=== PATIENT | female | born 1955 | race Caucasian/White ===

== ENCOUNTER → 2016-09-04 | Outpatient (CLI) | payer BC, OTHER ==
[~2016-09-04] MED LIST: BONI150T PO; LEVO88TA3 PO
--- NOTE | 2016-09-04 15:48 | REPMRS ---
Patient History The patient states she had a clinical breast exam in 2016. No known family history of cancer. Took hormonal contraceptives for 4 years. Took unspecified hormones for 4 years. Digital Mammo Screening Bilat: September 04, 2016 - Exam #: [id number] Bilateral CC and MLO view(s) were taken. Technologist: Jen Klein, Technologist Prior study comparison: August 30, 2015, bilateral digital mammo screening bilat performed at [facility]. August 29, 2014, bilateral bilat screen digital mammo, performed at [facility] ([facility]). FINDINGS: The breast tissue is heterogeneously dense. This may lower the sensitivity of mammography. There is a fairly symmetric fibroglandular pattern in both breasts. There has been no interval development of masses, areas of architectural distortion or clusters of microcalcifications typical of malignancy. No significant changes when compared with prior studies. ASSESSMENT: BI-RADS/ACR category 2 mammogram. Benign finding(s). Recommendation Routine screening mammogram of both breasts in 1 year (for women over age 40). This mammogram was interpreted with the aid of an FDA-approved computer-aided dectection system. Electronically Signed By: Sonny Escalera MD 09/04/16 8009
== END ==
LOC: M RAD 14:44
PROVIDERS: ATTEND Obstetrics & Gynecology
DX: Z12.31 Encounter for screening mammogram for malignant neoplasm of breast (principal)

== ENCOUNTER → 2016-09-30 | Outpatient (REF) | payer OTHER ==
[2016-09-30 11:31] LABS: ALBUMIN 3.6 GM/DL (3.2-5.2); ALBUMIN/GLOBULIN RATIO 0.88 (1.00-1.93); ALKALINE PHOSPHATASE 76 U/L (45-117); ALT/SGPT 28 U/L (12-78); ANION GAP 8 MEQ/L (8-16); AST/SGOT 24 U/L (15-37); BILIRUBIN,TOTAL 0.7 MG/DL (0.2-1.0); BLOOD UREA NITROGEN 20 MG/DL (7-18); CALCIUM LEVEL 8.1 MG/DL (8.8-10.2); CARBON DIOXIDE LEVEL 30 MEQ/L (21-32); CHLORIDE LEVEL 106 MEQ/L (98-107); CHOLESTEROL LEVEL 222 MG/DL (<200); CREATININE FOR GFR 0.83 MG/DL (0.55-1.02); FREE T4 1.46 NG/DL (0.76-1.46); GLOMERULAR FILTRATION RATE > 60.0 (>45); GLUCOSE, FASTING 82 MG/DL (80-110); SODIUM LEVEL 144 MEQ/L (136-145); TOTAL PROTEIN 7.7 GM/DL (6.4-8.2); TRIGLYCERIDES LEVEL 91 MG/DL (<150)
== END ==
LOC: M SFHCCLAY 07:16
PROVIDERS: ATTEND Family Medicine
DX: E78.2 Mixed hyperlipidemia (principal); E03.9 Hypothyroidism, unspecified; M81.0 Age-related osteoporosis without current pathological fracture

== ENCOUNTER → 2017-03-31 | Outpatient (REF) | payer OTHER ==
[2017-03-31 12:55] LABS: ALBUMIN 3.5 GM/DL (3.2-5.2); ALBUMIN/GLOBULIN RATIO 0.88 (1.00-1.93); ALKALINE PHOSPHATASE 66 U/L (45-117); ALT/SGPT 22 U/L (12-78); ANION GAP 6 MEQ/L (8-16); AST/SGOT 19 U/L (15-37); BILIRUBIN,TOTAL 0.7 MG/DL (0.2-1.0); BLOOD UREA NITROGEN 18 MG/DL (7-18); CALCIUM LEVEL 8.6 MG/DL (8.8-10.2); CARBON DIOXIDE LEVEL 31 MEQ/L (21-32); CHLORIDE LEVEL 108 MEQ/L (98-107); CHOLESTEROL LEVEL 198 MG/DL (<200); CREATININE FOR GFR 0.92 MG/DL (0.55-1.02); FREE T4 1.39 NG/DL (0.76-1.46); GLOMERULAR FILTRATION RATE > 60.0 (>45); GLUCOSE, FASTING 80 MG/DL (80-110); POTASSIUM SERUM 4.1 MEQ/L (3.5-5.1); SODIUM LEVEL 145 MEQ/L (136-145); TOTAL PROTEIN 7.5 GM/DL (6.4-8.2); TRIGLYCERIDES LEVEL 62 MG/DL (<150)
== END ==
LOC: M SFHCCLAY 07:08
PROVIDERS: ATTEND Family Medicine
DX: E78.2 Mixed hyperlipidemia (principal); E03.9 Hypothyroidism, unspecified; M81.0 Age-related osteoporosis without current pathological fracture

== ENCOUNTER → 2017-09-29 | Outpatient (REF) | payer OTHER ==
[2017-09-29 11:53] LABS: TOTAL 25(OH) VITAMIN D 33.6 NG/ML (30.0-100.0)
[2017-09-29 12:06] LABS: ALBUMIN 4.3 GM/DL (3.2-5.2); ALBUMIN/GLOBULIN RATIO 1.08 (1.00-1.93); ALKALINE PHOSPHATASE 72 U/L (45-117); ALT/SGPT 21 U/L (12-78); ANION GAP 5 MEQ/L (8-16); AST/SGOT 23 U/L (7-37); BILIRUBIN,TOTAL 0.6 MG/DL (0.2-1.0); BLOOD UREA NITROGEN 21 MG/DL (7-18); CALCIUM LEVEL 8.7 MG/DL (8.8-10.2); CARBON DIOXIDE LEVEL 33 MEQ/L (21-32); CHLORIDE LEVEL 103 MEQ/L (98-107); CHOLESTEROL LEVEL 237 MG/DL (<200); CREATININE FOR GFR 0.85 MG/DL (0.55-1.30); FREE T4 1.57 NG/DL (0.76-1.46); GLOMERULAR FILTRATION RATE > 60.0 (>45); GLUCOSE, FASTING 83 MG/DL (70-100); HDL CHOLESTEROL 79 MG/DL (>40); LDL CHOLESTEROL 138.6 MG/DL (<100); NON-HDL-C 158 MG/DL; POTASSIUM SERUM 4.1 MEQ/L (3.5-5.1); SODIUM LEVEL 141 MEQ/L (136-145); TOTAL PROTEIN 8.3 GM/DL (6.4-8.2); TRIGLYCERIDES LEVEL 97 MG/DL (<150)
== END ==
LOC: M SFHCCLAY 07:13
DX: E78.2 Mixed hyperlipidemia (principal); E03.9 Hypothyroidism, unspecified; M81.0 Age-related osteoporosis without current pathological fracture

== ENCOUNTER → 2017-12-22 | Outpatient (REF) | payer OTHER ==
[2017-12-22 11:59] LABS: TOTAL T3 77.2 NG/DL (60.0-181.0)
[2017-12-22 12:00] LABS: THYROXINE (T4) 12.6 UG/DL (4.5-12.0)
[2017-12-22 12:00] LABS: THYROID STIMULATING HORMONE 0.863 uIU/ML (0.358-3.740)
== END ==
LOC: M SFHCCLAY 07:19
DX: E03.9 Hypothyroidism, unspecified (principal)

== ENCOUNTER → 2018-09-03 | Outpatient (REF) | payer OTHER ==
[2018-09-03 12:18] LABS: THYROID STIMULATING HORMONE 0.745 uIU/ML (0.358-3.740); THYROXINE (T4) 11.8 UG/DL (4.5-12.0)
== END ==
LOC: M SFHCCLAY 07:23
PROVIDERS: ATTEND Family Medicine
DX: E78.2 Mixed hyperlipidemia (principal)

== ENCOUNTER → 2018-09-16 | Outpatient (CLI) | payer BC, OTHER ==
--- NOTE | 2018-09-16 18:34 | REPMRS ---
Patient History The patient states she had a clinical breast exam in 2018. No known family history of cancer. Took hormonal contraceptives for 4 years. Took unspecified hormones for 4 years. Digital Mammo Screening Bilat: September 16, 2018 - Exam #: [id number] Bilateral CC and MLO view(s) were taken. Technologist: Jen Klein, Technologist Prior study comparison: September 10, 2017, bilateral digital mammo screening bilat performed at [facility]. September 04, 2016, bilateral digital mammo screening bilat performed at [facility]. August 30, 2015, bilateral digital mammo screening bilat performed at [facility]. FINDINGS: The breast tissue is heterogeneously dense. This may lower the sensitivity of mammography. There are small stable well-circumscribed benign nodules bilaterally. There is a moderate amount of heterogeneously dense fibroglandular tissue which is fairly symmetric. There is no interval development of dominant mass, architectural distortion, or clustered microcalcification typical of malignancy. There has been no change in the appearance of the mammogram from the prior studies. 3-D tomosynthesis shows no additional findings. Assessment: BI-RADS/ACR category 2 mammogram. Benign finding(s). Recommendation Routine screening mammogram of both breasts in 1 year (for women over age 40). This patient's Lifetime Breast Cancer RIsk is estimated at 6.0 %. This mammogram was interpreted with the aid of an FDA-approved computer-aided dectection system. Electronically Signed By: Devin Johnson MD 09/16/18 [id number]
== END ==
LOC: M RAD 15:36
PROVIDERS: ATTEND Obstetrics & Gynecology
DX: Z12.31 Encounter for screening mammogram for malignant neoplasm of breast (principal); R92.8 Other abnormal and inconclusive findings on diagnostic imaging of breast; N60.31 Fibrosclerosis of right breast; N60.32 Fibrosclerosis of left breast

== ENCOUNTER → 2019-03-15 | Outpatient (REF) | payer MEDICARE, OTHER ==
[~2019-03-15] MED LIST changes: -BONI150T PO; +BONI1TAB PO
[2019-03-15 11:11] LABS: BASO # 0.1 10^3/uL (0.0-0.2); EOS # 0.3 10^3/uL (0.0-0.50); EOS % 5.5 % (0.0-3.0); HEMATOCRIT 42.5 % (36.0-47.0); HEMOGLOBIN 13.7 g/dl (12.0-15.5); LYMPH # 1.6 10^3/uL (1.5-4.5); LYMPH % 32.7 % (24.0-44.0); MEAN CORPUSCULAR HGB CONC 32.2 g/dl (32.0-36.5); MEAN CORPUSCULAR VOLUME 86.9 fl (80.0-96.0); MONO # 0.5 10^3/uL (0.0-0.8); MONO % 9.6 % (0.0-5.0); NEUTROPHILS # 2.4 10^3/uL (1.8-7.7); PLATELET COUNT, AUTOMATED 191 10^3/uL (150-450); RED BLOOD COUNT 4.89 10^6/uL (4.00-5.40); WHITE BLOOD COUNT 4.8 10^3/uL (4.0-10.0)
[2019-03-15 11:29] LABS: ALBUMIN 3.7 GM/DL (3.2-5.2); ALT/SGPT 25 U/L (12-78); BILIRUBIN,TOTAL 0.7 MG/DL (0.2-1.0); BLOOD UREA NITROGEN 20 MG/DL (7-18); CALCIUM LEVEL 9.2 MG/DL (8.8-10.2); CARBON DIOXIDE LEVEL 32 MEQ/L (21-32); CHLORIDE LEVEL 105 MEQ/L (98-107); CHOLESTEROL LEVEL 207 MG/DL (<200); CREATININE FOR GFR 0.86 MG/DL (0.55-1.30); GLOMERULAR FILTRATION RATE > 60.0 (>45); GLUCOSE, FASTING 88 MG/DL (70-100); HDL CHOLESTEROL 69 MG/DL (>40); LDL CHOLESTEROL 125 MG/DL (<100); NON-HDL-C 138 MG/DL; POTASSIUM SERUM 3.9 MEQ/L (3.5-5.1); SODIUM LEVEL 142 MEQ/L (136-145); TOTAL PROTEIN 7.5 GM/DL (6.4-8.2); TRIGLYCERIDES LEVEL 66 MG/DL (<150)
== END ==
LOC: M SFHCCLAY 08:04
PROVIDERS: ATTEND Family Medicine
DX: E78.2 Mixed hyperlipidemia (principal); E03.9 Hypothyroidism, unspecified; R03.0 Elevated blood-pressure reading, without diagnosis of hypertension

== ENCOUNTER → 2019-09-20 | Outpatient (REF) | payer MEDICARE, OTHER | LOC: M SFHCCLAY 15:13 | PROVIDERS: ATTEND Family Medicine | DX: E03.9 Hypothyroidism, unspecified (principal) ==

== ENCOUNTER → 2019-10-04 | Outpatient (CLI) | payer MEDICARE, BC, OTHER ==
--- NOTE | 2019-10-04 16:23 | REP ---
BILATERAL SCREENING DIGITAL MAMMOGRAM WITH 3D TOMOSYNTHESIS: There are no palpable abnormalities or other breast complaints. The the patient states she had a clinical breast examination October,. The [facility] Lifetime Breast Cancer Risk Score is: 5.7% . Comparison is 08/29/2014. The The breasts are heterogeneously dense, which could obscure small masses. There is no dominant mass, micro calcific cluster or architectural distortion that would indicate malignancy. There are no additional findings on 3D tomosynthesiss. There is no change from the prior study. Impression: BIRADS/ACR category 1 mammogram. Negative. Recommendation: Routine annual screening mammography. Because of the increased breast density, annual adjunctive breast MRI in addition to screening mammography is recommended. These can be performed at alternating six month intervals. This mammogram was interpreted with the aid of a FDA approved computer-aided detection system. A. Negative mammogram reports should not delay biopsy if a dominant or clinically suspicious mass is present. B. Not all breast cancers are identified by mammography or tomosynthesis. C. Adenosis and dense breasts may obscure an underlying neoplasm. Patient letter M1 dense breasts. Electronically Signed by Sonny Pichardo MD 10/04/2019 04:13 P
== END ==
LOC: M WHC 14:57
PROVIDERS: ATTEND Obstetrics & Gynecology
DX: Z12.31 Encounter for screening mammogram for malignant neoplasm of breast (principal)

== ENCOUNTER → 2019-10-20 | Outpatient (CLI) | payer MEDICARE, BC | LOC: M WHC 15:23 | PROVIDERS: ATTEND Obstetrics & Gynecology | DX: M85.88 Other specified disorders of bone density and structure, other site (principal) ==

== ENCOUNTER → 2020-03-31 | Outpatient (REF) | payer MEDICARE, OTHER | LOC: M SFHCCLAY 13:13 | PROVIDERS: ATTEND Family Medicine | DX: E03.9 Hypothyroidism, unspecified (principal) ==

== ENCOUNTER → 2020-05-09 | Outpatient (REF) | payer MEDICARE, OTHER ==
[2020-05-09 20:05] LABS: ALBUMIN 3.7 GM/DL (3.2-5.2); ALT/SGPT 29 U/L (12-78); BILIRUBIN,TOTAL 0.9 MG/DL (0.2-1.0); BLOOD UREA NITROGEN 14 MG/DL (7-18); CALCIUM LEVEL 8.6 MG/DL (8.8-10.2); CARBON DIOXIDE LEVEL 29 MEQ/L (21-32); CHLORIDE LEVEL 106 MEQ/L (98-107); CREATININE FOR GFR 0.83 MG/DL (0.55-1.30); GLOMERULAR FILTRATION RATE > 60.0 (>45); GLUCOSE, FASTING 85 MG/DL (70-100); POTASSIUM SERUM 3.9 MEQ/L (3.5-5.1); SODIUM LEVEL 140 MEQ/L (136-145); TOTAL PROTEIN 7.8 GM/DL (6.4-8.2)
== END ==
LOC: M LABDRAWC 19:24
PROVIDERS: ATTEND Family Medicine
DX: M81.0 Age-related osteoporosis without current pathological fracture (principal)

== ENCOUNTER → 2020-09-25 | Outpatient (REF) | payer MEDICARE, OTHER | LOC: M SFHCCLAY 07:53 | PROVIDERS: ATTEND Family Medicine | DX: E03.9 Hypothyroidism, unspecified (principal) ==

== ENCOUNTER → 2020-10-03 | Outpatient (CLI) | payer MEDICARE, BC ==
--- NOTE | 2020-10-03 10:59 | REP ---
INDICATION: M25.441, SWELLING OF FINGER JOINT OF RIGHT HAND. COMPARISON: None. TECHNIQUE: Four views of the bilateral hands are presented. FINDINGS: Four views of the both hands demonstrate mild diffuse osteopenia. There are erosive osteoarthritis changes affecting the DIP joints of the index fingers on both sides. Lesser osteoarthritic changes are seen at the other finger DIP joints and at the PIP joint of the right small finger and the IP joints of both thumbs. There is minimal spurring at the [facility] [employer] articulations bilaterally. There is a navicular 0 multangular sclerosis and joint space narrowing on the right. There is subcortical cyst formation in the proximal portion of the lunate bone on the left. No erosive changes are seen.. No fracture or subluxation is seen. No opaque foreign body noted. 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 <Electronically signed by Devin Johnson > 10/03/20 [id number]
== END ==
LOC: M CLY 08:08
PROVIDERS: ATTEND Family Medicine
DX: M19.041 Primary osteoarthritis, right hand (principal); M19.042 Primary osteoarthritis, left hand; M85.841 Other specified disorders of bone density and structure, right hand; M85.842 Other specified disorders of bone density and structure, left hand; M25.441 Effusion, right hand
CPT/HCPCS: 73130; G0463

== ENCOUNTER → 2020-10-04 | Outpatient (CLI) | payer MEDICARE, BC ==
--- NOTE | 2020-10-04 16:29 | REPMRS ---
Patient History The patient states she has not had a clinical breast exam in over a year. No known family history of cancer. Took hormonal contraceptives for 4 years. Took unspecified hormones for 4 years. Digital Woman Screen Mammo: October 04, 2020 - Exam #: [id number] Bilateral CC and MLO view(s) were taken. Technologist: RT Roberto Prior study comparison: October 04, 2019, bilateral digital woman screen mammo performed at [facility]. September 16, 2018, bilateral digital mammo screening bilat, performed at [facility]. September 10, 2017, bilateral digital mammo screening bilat, performed at [facility]. FINDINGS: There are scattered fibroglandular densities. The [facility] volumetric breast density category is:B. [There is a stable well-circumscribed nodule in the left breast upper outer quadrant unchanged. There is a nodular density in the medial central right breast measuring 1.1 cm in greatest diameter which merits further evaluation. This is not apparent previously. It is not well seen on MLO view. There has been no other change in the appearance of the mammogram from the prior studies. There is a mild amount of scattered fibroglandular density which is fairly symmetric. There is no other interval development of dominant mass, architectural distortion, or grouped microcalcification suggestive of malignancy. 3-D tomosynthesis shows no additional findings. Assessment: BI-RADS/ACR category 0 mammogram, Incomplete: Need additional imaging evaluation and/or prior mammograms for comparison. Recommendation Ultrasound and special view mammogram of the right breast. This patient's [facility] Lifetime Breast Cancer Risk is estimated at 5.4 %. This mammogram was interpreted with the aid of an FDA-approved computer-aided dectection system. Electronically Signed By: Devin Johnson MD 10/04/20 1000
== END ==
LOC: M WHC 15:48
PROVIDERS: ATTEND Family Medicine
DX: Z12.31 Encounter for screening mammogram for malignant neoplasm of breast (principal); Z92.0 Personal history of contraception; Z92.29 Personal history of other drug therapy; N63.21 Unspecified lump in the left breast, upper outer quadrant

== ENCOUNTER → 2020-11-30 | Outpatient (REF) | payer MEDICARE, OTHER ==
[2020-12-01 11:41] LABS: BASO # 0.1 10^3/uL (0.0-0.2); BASO % 1.4 % (0.0-1.0); EOS # 0.6 10^3/uL (0.0-0.5); EOS % 7.9 % (0.0-3.0); HEMATOCRIT 45.7 % (36.0-47.0); HEMOGLOBIN 14.5 g/dl (12.0-15.5); LYMPH # 1.9 10^3/uL (1.5-5.0); LYMPH % 26.2 % (24.0-44.0); MEAN CORPUSCULAR HEMOGLOBIN 28.5 pg (27.0-33.0); MEAN CORPUSCULAR HGB CONC 31.7 g/dl (32.0-36.5); MEAN CORPUSCULAR VOLUME 89.8 fl (80.0-96.0); MONO # 0.6 10^3/uL (0.0-0.8); MONO % 8.3 % (2.0-8.0); NEUTROPHILS % 55.8 % (36.0-66.0); PLATELET COUNT, AUTOMATED 232 10^3/uL (150-450); RED BLOOD COUNT 5.09 10^6/uL (4.00-5.40); WHITE BLOOD COUNT 7.1 10^3/uL (4.0-10.0)
[2020-12-01 12:04] LABS: ALBUMIN 3.9 GM/DL (3.2-5.2); ALT/SGPT 21 U/L (12-78); BILIRUBIN,TOTAL 0.3 MG/DL (0.2-1.0); BLOOD UREA NITROGEN 18 MG/DL (7-18); CALCIUM LEVEL 9.2 MG/DL (8.8-10.2); CARBON DIOXIDE LEVEL 32 MEQ/L (21-32); CHLORIDE LEVEL 106 MEQ/L (98-107); CHOLESTEROL LEVEL 250 MG/DL (<200); CHOLESTEROL RISK RATIO 3.571 (<5); CREATININE FOR GFR 0.82 MG/DL (0.55-1.30); GLOMERULAR FILTRATION RATE > 60.0 (>45); GLUCOSE, FASTING 86 MG/DL (70-100); HDL CHOLESTEROL 70 MG/DL (>40); LDL CHOLESTEROL 152 MG/DL (<100); NON-HDL-C 180 MG/DL; POTASSIUM SERUM 4.3 MEQ/L (3.5-5.1); RHEUMATOID FACTOR QUANT < 10.0 IU/ML (<15.0); SODIUM LEVEL 141 MEQ/L (136-145); TOTAL PROTEIN 8.2 GM/DL (6.4-8.2); TRIGLYCERIDES LEVEL 140 MG/DL (<150)
[2020-12-01 12:11] LABS: ERYTHROCYTE SEDIMENTATION RATE 37 mm/hr (0-30)
[2020-12-04 03:06] LABS: ANA (HEP2) Negative (.); CYCLIC CITRULLINATED PEPTIDE 11 units (0-19)
== END ==
LOC: M SFHCCLAY 15:08
PROVIDERS: ATTEND Family Medicine
DX: M25.441 Effusion, right hand (principal); E78.2 Mixed hyperlipidemia; E03.9 Hypothyroidism, unspecified

== ENCOUNTER → 2020-12-14 | Outpatient (CLI) | payer MEDICARE, BC ==
--- NOTE | 2020-12-15 08:02 | REP ---
INDICATION: ADDL VIEWS/RIGHT BREAST NODULE; LEFT BREAST NODULE. Screening mammography October 04, 2020 was BI-RADS category 0 incomplete because of a 1.1 cm nodular density in the medial aspect of the right breast which was felt to be new. COMPARISON: Comparison mammography October 04, 2020 as well as September 16, 2018. TECHNIQUE: Magnified focal spot-compression CC, mL, and MLO views of the right breast are obtained in the area of interest. Targeted right breast sonography is carried out. This mammogram was interpreted with the aid of an FDA-approved computer-aided detection system. FINDINGS: Scattered fibroglandular elements are seen. There is a small stable nodule in the far medial aspect of the right breast which is unchanged from 2019 prior mammogram. Diagnostic images confirm the presence of a well-circumscribed 1.0 cm nodule in the superomedial quadrant of the right breast corresponding with the screening mammogram. Vascular calcification is seen. No other significant mammographic finding. Targeted ultrasound: Targeted right breast sonography is performed in the is superior and medial quadrant of the right breast. In the 1 o'clock position, of 3 cm from the nipple, there is a cluster of septated cysts with a aggregate dimensions of 1.3 x 1.2 x 0.4 cm. This is felt to account for the mammographic opacity. There is mural and septal thickening in the lesion which therefore, does not meet criteria of a simple cyst sonographically. Its long axis is parallel to the skin. No spiculation or acoustic shadowing. No other sonographic finding. IMPRESSION: BIRADS/ACR category 4 suspicious right breast mammographic and sonographic findings. Complex cystic lesion with some mural and septal thickening right breast accounting for the kyra density mammographically. Histologic sampling is recommended. [facility] lifetime breast cancer risk assessment score is 5.4%. RECOMMENDATION: Ultrasound-guided needle biopsy right breast cystic nodule with clip placement and post clip placement mammography recommended.. The patient letter being requested is M4. <Electronically signed by Devin Johnson > 12/15/20 1186
== END ==
LOC: M WHC 15:36
PROVIDERS: ATTEND Family Medicine
DX: R92.8 Other abnormal and inconclusive findings on diagnostic imaging of breast (principal)

== ENCOUNTER → 2021-01-10 | Outpatient (CLI) | payer MEDICARE, BC ==
[~2021-01-10] MED LIST changes: +A-10CAP2 PO; +ADV250INH INH; +CALC1TAB26 PO; +CALCCAP4 PO; +CIDA500T2 PO; +COQ-100C5 PO; +CUMIN PO; +D 101000 PO; +DIALTAB PO; +FISH1000 PO; +MULT-90 PO; +PROL60SO SC; +TURMERIC PO; +Tumeric; +[UNRECOGNIZED DRUG - CODE] PO; +[UNRECOGNIZED DRUG - OTHER]; +[UNRECOGNIZED DRUG - OTHER] PO
[2021-01-10 08:59] VITALS: BP 148/82
--- NOTE | 2021-01-10 16:27 | REP ---
INDICATION: R92.8 ABN MAMMO RT BREAST,US GUIDED BIOPSY. COMPARISON: 12/14/2020. TECHNIQUE: Real-time sonographic guidance utilized by Dr. Carney for biopsy of right breast. FINDINGS: Dr. Carney utilized ultrasound for biopsy of the right breast. IMPRESSION: Dr. Carney utilized ultrasound for biopsy of the right breast.I was not present for the procedure. RECOMMENDATION: Clinical follow-up. <Electronically signed by Sonny Escalera > 01/10/21 [id number]
--- NOTE | 2021-01-10 16:30 | REP ---
INDICATION: R92.8 ABN MAMMO RT BREAST,POST US GUIDED BIOPSY. COMPARISON: 10/04/2020 and 12/14/2020. TECHNIQUE: ML and CC views right breast performed with tomosynthesis, following ultrasound-guided biopsy of a complex cyst. FINDINGS: Biopsy clip is seen at the site of the nodule which was identified on the mammogram of 10/04/2020 and 12/14/2020. Nodule appears smaller. IMPRESSION: Biopsy clip is seen at the site of the nodule which was identified on the mammogram of 10/04/2020 and 12/14/2020. Nodule appears smaller. RECOMMENDATION: Clinical follow-up. <Electronically signed by Sonny Escalera > 01/10/21 1683
--- NOTE | 2021-01-11 21:59 | ROOPDOC ---
[facility] Report Of Operation Report of Operation DATE OF PROCEDURE: 01/10/21 DIAGNOSIS: right breast suspicious lesion PROCEDURE: ultrasound guided biopsy of the right breast suspicious lesion with clip placement SURGEON: Sandy Hannah BLOOD LOSS: minimal COMPLICATIONS: none Lidocaine 1% LOT [id number] Expiration 10/2023 Sodium Bicarbonate 8.4% LOT [id number] Expiration 10/2021 Hydromark clip LOT [id number] Expiration 08/2023 SHAPE: 3 Bx device: BARD [id number] x10 cm LOT [id number] Expiration 10/2023 Informed consent was obtained. The most common risk and possible complications including bleeding, hematoma, bruising, infection, injury to surrounding structures were explained to the patient and the patient expressed understanding. Patient was placed on the bed in the supine position. Appropriate time out was done stating patients name, date of , and the procedure to be performed. The right breast was prepped and draped in the usual fashion. The ultrasound was used to confirm the location of the complex cystic lesion in the right breast at 1:00 2 centimeters from the nipple. Plain Lidocaine 1% and 8.4% sodium bicarbonate 10:1 mix was used to anesthetize the skin, the biopsy site and tissues along the anticipated biopsy tract. Small skin incision was made with blade number 11. BARD Marquee 14G cannula with introducer ([id number]) was inserted through the incision and advanced under the ultrasound guidance to position immediately adjacent to the lesion. Next, the introducer was removed and BARD Marquee 14G biopsy device was places in the cannula. Pre-biopsy imaging, and post-biopsy imaging were captured. Two good core biopsies were taken. No additional cores were taken as the lesion become poorly visible after initial two cores. Specimen was placed in formaldehyde, labeled with appropriate biopsy site and patients name, and sent to pathology for evaluation. Next, the biopsy device was withdrawn and a clip introducer was inserted into the biopsy site via the cannula. SHAPE 3 Hydromark clip was deployed under sonographic guidance. Post-clip placement image was captured. Manual pressure over the biopsy cavity and tract was held after the clip introducer was withdrawn. No bleeding was noted upon removal of the pressure. Post-biopsy mammogram of the right breast was obtained and showed clip in expected position. Postprocedural dressing was placed. Patient tolerated procedure well. Discharge instructions were discussed with the patient and the patient expressed understanding. SANDY HANNAH DO January 11, 2021 21:59
== END ==
LOC: M WHCPRO 06:31
PROVIDERS: ATTEND Surgery
DX: D24.1 Benign neoplasm of right breast (principal); N63.12 Unspecified lump in the right breast, upper inner quadrant
CPT/HCPCS: 19083; 77065; 88305; G0279

== ENCOUNTER → 2021-02-07 | Outpatient (CLI) | payer MEDICARE, BC ==
[~2021-02-07] MED LIST changes: +RA T500C2 PO
== END ==
LOC: M LABSMTC 10:58
PROVIDERS: ATTEND Anesthesiology
DX: Z01.812 Encounter for preprocedural laboratory examination (principal); Z20.822 Contact with and (suspected) exposure to COVID-19

== ENCOUNTER 2021-02-12 08:31 | Day surgery (SDC) | payer MEDICARE, BC, OTHER ==
[~2021-02-12] VITALS: Ht 152.4 cm; Wt 55.8 kg
[~2021-02-12 08:31] MED LIST changes: +NS 1,000 ML IV ONE
[2021-02-12] MEDS ORDERED: LIDOCAINE 2% 100MG/5ML SDV (FOR ANES.) As Ordered ONE (09:48)
[2021-02-12] MEDS ORDERED: propofoL 200 MG/20 ML VIAL As Ordered ONE (09:48)
--- NOTE | 2021-02-12 10:31 | ROOR ---
Patient Name: Nohemy Sweeney Procedure Date: 02/12/2021 9:56 AM Date of : 1955 Age: 66 Room: [facility] Gender: Female Note Status: Finalized Procedure: Total Colonoscopy to Cecum + Cold Snare Polypectomy + Hemoclips Indications: High risk colon cancer surveillance: Personal history of colonic polyps, Last colonoscopy: 2015 Providers: John Oneill MD Referring MD: BHARAT FIGUEROA DO Requesting Provider: Medicines: Monitored Anesthesia Care Complications: No immediate complications. Procedure: Pre-Anesthesia Assessment: - The heart rate, respiratory rate, oxygen saturations, blood pressure, adequacy of pulmonary ventilation, and response to care were monitored throughout the procedure. The Colonoscope was introduced through the anus and advanced to the cecum, identified by appendiceal orifice and ileocecal valve. The colonoscopy was performed without difficulty. The patient tolerated the procedure well. The quality of the bowel preparation was excellent. Findings: The perianal and digital rectal examinations were normal. Non-bleeding internal hemorrhoids were found during retroflexion. The hemorrhoids were small and Grade I (internal hemorrhoids that do not prolapse). Scattered small-mouthed diverticula were found in the recto-sigmoid colon, sigmoid colon and descending colon. A medium polyp was found in the cecum. The polyp was carpet-like. The polyp was removed with a cold snare. Resection and retrieval were complete. To prevent bleeding after the polypectomy, one hemostatic clip was successfully placed (MR conditional). There was no bleeding at the end of the procedure. The exam was otherwise without abnormality on direct and retroflexion views. Impression: - Non-bleeding internal hemorrhoids. - Diverticulosis in the recto-sigmoid colon, in the sigmoid colon and in the descending colon. - One medium polyp in the cecum, removed with a cold snare. Resected and retrieved. Clip (MR conditional) was placed. - The examination was otherwise normal on direct and retroflexion views. - The exam was otherwise normal to the cecum. Recommendation: - Patient has a contact number available for emergencies. The signs and symptoms of potential delayed complications were discussed with the patient. Return to normal activities tomorrow. Written discharge instructions were provided to the patient. - High fiber diet. - Discharge patient to home. - Continue present medications. - Await pathology results. - Telephone GI clinic for pathology results in 1 week. - Repeat colonoscopy at appointment to be scheduled for surveillance based on pathology results. - Return to referring physician. - The findings and recommendations were discussed with the patient's family. Procedure Code(s): --- Professional --- 36660, Colonoscopy, flexible; with removal of tumor(s), polyp(s), or other lesion(s) by snare technique Diagnosis Code(s): --- Professional --- Z86.010, Personal history of colonic polyps K64.0, First degree hemorrhoids K63.5, Polyp of colon K57.30, Diverticulosis of large intestine without perforation or abscess without bleeding CPT copyright 2019 [employer]. All rights reserved. The codes documented in this report are preliminary and upon planing machine operator review may be revised to meet current compliance requirements. John Oneill MD John Oneill MD 02/12/2021 10:31:00 AM Electronically signed by John Oneill MD Number of Addenda: 0 Note Initiated On: 02/12/2021 9:56 AM Estimated Blood Loss: Estimated blood loss: none.
[2021-02-12 10:50] VITALS: BP 137/63
== END 2021-02-12 11:03 | disposition home or self-care (01) ==
LOC: M OPP 08:31
PROVIDERS: ATTEND Internal Medicine Gastroenterology
DX: Z12.11 Encounter for screening for malignant neoplasm of colon (principal); Z86.010 Personal history of colon polyps; D12.0 Benign neoplasm of cecum; K57.30 Diverticulosis of large intestine without perforation or abscess without bleeding; K64.0 First degree hemorrhoids; Z79.899 Other long term (current) drug therapy

== ENCOUNTER → 2021-03-28 | Outpatient (REF) | payer MEDICARE, OTHER ==
[~2021-03-28] MED LIST changes: -NS 1,000 ML IV ONE
[2021-03-28 12:49] LABS: ALBUMIN 3.6 GM/DL (3.2-5.2); ALT/SGPT 26 U/L (12-78); BILIRUBIN,TOTAL 0.6 MG/DL (0.2-1.0); BLOOD UREA NITROGEN 18 MG/DL (7-18); CALCIUM LEVEL 8.6 MG/DL (8.8-10.2); CARBON DIOXIDE LEVEL 30 MEQ/L (21-32); CHLORIDE LEVEL 108 MEQ/L (98-107); CHOLESTEROL LEVEL 218 MG/DL (<200); CHOLESTEROL RISK RATIO 3.406 (<5); CREATININE FOR GFR 0.75 MG/DL (0.55-1.30); GLOMERULAR FILTRATION RATE > 60.0 (>45); GLUCOSE, FASTING 81 MG/DL (70-100); HDL CHOLESTEROL 64 MG/DL (>40); LDL CHOLESTEROL 137 MG/DL (<100); NON-HDL-C 154 MG/DL; POTASSIUM SERUM 4.7 MEQ/L (3.5-5.1); SODIUM LEVEL 141 MEQ/L (136-145); TOTAL PROTEIN 7.4 GM/DL (6.4-8.2); TRIGLYCERIDES LEVEL 87 MG/DL (<150)
== END ==
LOC: M SFHCCLAY 07:15
PROVIDERS: ATTEND Family Medicine
DX: E78.2 Mixed hyperlipidemia (principal); E03.9 Hypothyroidism, unspecified; M81.0 Age-related osteoporosis without current pathological fracture

== ENCOUNTER → 2021-06-11 | Outpatient (CLI) | payer MEDICARE, BC ==
--- NOTE | 2021-06-11 16:01 | REP ---
INDICATION: R BREAST 6 MN F/U BN BX. COMPARISON: 10/04/2020, 12/14/2020, 01/10/2021. TECHNIQUE: MLO and CC views right breast with tomosynthesis. FINDINGS: Moderate scattered fibroglandular tissue is again noted. The previously noted nodule medially in the right breast is decreased in size compared to the prior initial exam of 10/04/2020 and contains a biopsy clip. Appearance is stable compared to the prior post biopsy mammogram. There is no new mass or clustered microcalcifications. IMPRESSION: BIRADS/ACR category 2, benign. Nodule medially in the right breast contains a biopsy clip, smaller compared to the prior study of 10/04/2020 and unchanged since the mammogram of 01/10/2021. No new findings. This mammogram was interpreted with the aid of an FDA-approved computer-aided detection system. The patient letter being requested is M 1. RECOMMENDATION: Recommend bilateral screening mammography October 2021. <Electronically signed by Sonny Escalera > 06/11/21 [id number]
--- NOTE | 2021-06-11 16:31 | REP ---
INDICATION: RIGHT BREAST 6 MN F/U BN BX. COMPARISON: 01/10/2021, 12/14/2020. TECHNIQUE: Real-time sonographic evaluation of right breast performed. FINDINGS: Real-time sonographic evaluation of right breast performed at the 1 o'clock region at the site of the previous negative ultrasound-guided biopsy. A HydroMARK clip is noted at that location. No new cystic or solid mass is seen. IMPRESSION: BIRADS/ACR category 2, benign. HydroMARK clip at 1 o'clock position right breast, at the site of the prior benign biopsy. RECOMMENDATION: Bilateral screening mammography October 2021. <Electronically signed by Sonny Escalera > 06/11/21 2113
== END ==
LOC: M WHC 14:58
PROVIDERS: ATTEND Surgery
DX: R92.8 Other abnormal and inconclusive findings on diagnostic imaging of breast (principal)
CPT/HCPCS: 76642; 77065; G0279

== ENCOUNTER → 2022-01-10 | Outpatient (REF) | payer MEDICARE, BC, OTHER | LOC: M LAB REF 17:08 | PROVIDERS: ATTEND Orthopaedic Surgery | DX: M67.441 Ganglion, right hand (principal) ==

== ENCOUNTER → 2022-04-02 | Outpatient (REF) | payer MEDICARE, OTHER ==
[2022-04-02 12:11] LABS: ALBUMIN 3.5 GM/DL (3.2-5.2); ALT/SGPT 24 U/L (12-78); BILIRUBIN,TOTAL 0.3 MG/DL (0.2-1.0); BLOOD UREA NITROGEN 17 MG/DL (7-18); CALCIUM LEVEL 8.5 MG/DL (8.8-10.2); CARBON DIOXIDE LEVEL 28 MEQ/L (21-32); CHLORIDE LEVEL 108 MEQ/L (98-107); GLOMERULAR FILTRATION RATE > 60.0 (>45); GLUCOSE, FASTING 90 MG/DL (70-100); POTASSIUM SERUM 4.5 MEQ/L (3.5-5.1); SODIUM LEVEL 140 MEQ/L (136-145); TOTAL PROTEIN 7.8 GM/DL (6.4-8.2)
== END ==
LOC: M SFHCCLAY 07:17
PROVIDERS: ATTEND Family Medicine
DX: E03.9 Hypothyroidism, unspecified (principal); E78.2 Mixed hyperlipidemia

== ENCOUNTER → 2022-10-07 | Outpatient (REF) | payer MEDICARE, OTHER ==
[2022-10-07 12:17] LABS: ALBUMIN 3.9 G/DL (3.2-5.2); ALKALINE PHOSPHATASE 62 U/L (46-116); ALT/SGPT 25 U/L (7.0-40); AST/SGOT 29 U/L (<34); BILIRUBIN,TOTAL 0.8 MG/DL (0.3-1.2); BLOOD UREA NITROGEN 20 MG/DL (9-23); CALCIUM LEVEL 8.9 MG/DL (8.3-10.6); CARBON DIOXIDE LEVEL 28 MMOL/L (20-31); CHLORIDE LEVEL 106 MMOL/L (98-107); CHOLESTEROL LEVEL 234 MG/DL (<200); CHOLESTEROL RISK RATIO 3.39 (<5); CREATININE FOR GFR 0.74 MG/DL (0.55-1.30); GLOMERULAR FILTRATION RATE > 60.0 (>45); GLUCOSE, FASTING 87 MG/DL (74-106); LDL CHOLESTEROL 148.6 MG/DL (<100); NON-HDL-C 165 MG/DL; POTASSIUM SERUM 4.2 MMOL/L (3.5-5.1); SODIUM LEVEL 141 MMOL/L (136-145); THYROID STIMULATING HORMONE 2.512 uIU/ML (0.55-4.78); TOTAL PROTEIN 7.5 G/DL (5.7-8.2); TRIGLYCERIDES LEVEL 82 MG/DL (<150)
== END ==
LOC: M SFHCCLAY 07:13
PROVIDERS: ATTEND Family Medicine
DX: E78.2 Mixed hyperlipidemia (principal); E03.9 Hypothyroidism, unspecified

== ENCOUNTER → 2022-10-11 | Outpatient (REF) | payer MEDICARE, OTHER ==
[2022-10-16 18:09] LABS: H PYLORI SERUM QUANT IGA <9.0 units (0.0-8.9); H PYLORI SERUM QUANT IGM 9.1 units (0.0-8.9); H PYLORI SERUM QUANT IgG ABY 0.46 (0.00-0.79)
== END ==
LOC: M SFHCCLAY 13:00
PROVIDERS: ATTEND Family Medicine
DX: K21.9 Gastro-esophageal reflux disease without esophagitis (principal); E03.9 Hypothyroidism, unspecified

== ENCOUNTER → 2022-12-09 | Outpatient (CLI) | payer MEDICARE, BC, OTHER | LOC: M WHC 15:52 | PROVIDERS: ATTEND Family Medicine | DX: Z12.31 Encounter for screening mammogram for malignant neoplasm of breast (principal) ==

== ENCOUNTER → 2023-01-01 | Outpatient (CLI) | payer MEDICARE, BC, OTHER | LOC: M WHC 15:25 | PROVIDERS: ATTEND Family Medicine | DX: R92.8 Other abnormal and inconclusive findings on diagnostic imaging of breast (principal) | CPT/HCPCS: 77065; G0279 ==

== ENCOUNTER → 2023-04-08 | Outpatient (REF) | payer MEDICARE, OTHER ==
[2023-04-08 12:43] LABS: ALBUMIN 3.5 G/DL (3.2-5.2); ALKALINE PHOSPHATASE 69 U/L (46-116); ALT/SGPT 18 U/L (7.0-40); AST/SGOT 15 U/L (<34); BILIRUBIN,TOTAL 0.5 MG/DL (0.3-1.2); BLOOD UREA NITROGEN 15 MG/DL (9-23); CALCIUM LEVEL 8.9 MG/DL (8.3-10.6); CARBON DIOXIDE LEVEL 30 MMOL/L (20-31); CHLORIDE LEVEL 104 MMOL/L (98-107); CREATININE FOR GFR 0.74 MG/DL (0.55-1.30); GLOMERULAR FILTRATION RATE > 60.0 (>45); GLUCOSE, FASTING 78 MG/DL (74-106); POTASSIUM SERUM 4.2 MMOL/L (3.5-5.1); SODIUM LEVEL 140 MMOL/L (136-145); TOTAL PROTEIN 7.5 G/DL (5.7-8.2)
== END ==
LOC: M SFHCCLAY 07:05
PROVIDERS: ATTEND Family Medicine
DX: E78.2 Mixed hyperlipidemia (principal)

== ENCOUNTER → 2023-10-06 | Outpatient (REF) | payer MEDICARE, BC, OTHER ==
[2023-10-06 12:35] LABS: THYROID STIMULATING HORMONE 2.777 uIU/ML (0.55-4.78)
[2023-10-06 12:37] LABS: ALBUMIN 3.7 G/DL (3.2-5.2); ALKALINE PHOSPHATASE 64 U/L (46-116); ALT/SGPT 23 U/L (7.0-40); AST/SGOT 19 U/L (<34); BILIRUBIN,TOTAL 0.6 MG/DL (0.3-1.2); BLOOD UREA NITROGEN 20 MG/DL (9-23); CALCIUM LEVEL 8.3 MG/DL (8.3-10.6); CARBON DIOXIDE LEVEL 28 MMOL/L (20-31); CHLORIDE LEVEL 106 MMOL/L (98-107); CHOLESTEROL LEVEL 214 MG/DL (<200); CHOLESTEROL RISK RATIO 3.21 (<5); GLOMERULAR FILTRATION RATE > 60.0 (>45); GLUCOSE, FASTING 91 MG/DL (74-106); HDL CHOLESTEROL 66.6 MG/DL (>40); LDL CHOLESTEROL 132.6 MG/DL (<100); NON-HDL-C 147.4 MG/DL; SODIUM LEVEL 140 MMOL/L (136-145); TOTAL PROTEIN 7.7 G/DL (5.7-8.2); TRIGLYCERIDES LEVEL 74 MG/DL (<150)
== END ==
LOC: M SFHCCLAY 07:01
PROVIDERS: ATTEND Family Medicine
DX: E78.2 Mixed hyperlipidemia (principal); E03.9 Hypothyroidism, unspecified

== ENCOUNTER → 2023-12-16 | Outpatient (CLI) | payer MEDICARE, BC | LOC: M WHC 13:58 | PROVIDERS: ATTEND Nurse Practitioner Family | DX: Z12.31 Encounter for screening mammogram for malignant neoplasm of breast (principal); R92.323 Mammographic fibroglandular density, bilateral breasts ==

== ENCOUNTER → 2024-01-15 | Outpatient (REF) | payer MEDICARE, OTHER | LOC: M LAB REF 10:52 | PROVIDERS: ATTEND Orthopaedic Surgery | DX: L72.9 Follicular cyst of the skin and subcutaneous tissue, unspecified (principal) ==

== ENCOUNTER → 2024-04-06 | Outpatient (REF) | payer MEDICARE, BC ==
[2024-04-06 14:51] LABS: HEMATOCRIT 43.2 % (36.0-47.0); HEMOGLOBIN 14.1 g/dl (12.0-15.5); MEAN CORPUSCULAR HGB CONC 32.6 g/dl (32.0-36.5); MEAN CORPUSCULAR VOLUME 88.7 fl (80.0-96.0); PLATELET COUNT, AUTOMATED 199 10^3/uL (150-450); RED BLOOD COUNT 4.87 10^6/uL (4.00-5.40); WHITE BLOOD COUNT 4.9 10^3/uL (4.0-10.0)
[2024-04-06 15:24] LABS: ALBUMIN 3.6 G/DL (3.2-5.2); ALKALINE PHOSPHATASE 62 U/L (46-116); ALT/SGPT 21 U/L (7.0-40); AST/SGOT 19 U/L (<34); BILIRUBIN,TOTAL 0.9 MG/DL (0.3-1.2); BLOOD UREA NITROGEN 10 MG/DL (9-23); CALCIUM LEVEL 8.5 MG/DL (8.3-10.6); CARBON DIOXIDE LEVEL 29 MMOL/L (20-31); CHLORIDE LEVEL 107 MMOL/L (98-107); CHOLESTEROL LEVEL 240 MG/DL (<200); CHOLESTEROL RISK RATIO 4.06 (<5); CREATININE FOR GFR 0.68 MG/DL (0.55-1.30); GLOMERULAR FILTRATION RATE > 60.0 (>39); GLUCOSE, FASTING 85 MG/DL (74-106); LDL CHOLESTEROL 163.2 MG/DL (<100); POTASSIUM SERUM 4.3 MMOL/L (3.5-5.1); SODIUM LEVEL 140 MMOL/L (136-145); THYROID STIMULATING HORMONE 1.487 uIU/ML (0.55-4.78); TOTAL PROTEIN 7.6 G/DL (5.7-8.2); TRIGLYCERIDES LEVEL 89 MG/DL (<150)
== END ==
LOC: M SFHCCLAY 07:20
PROVIDERS: ATTEND Family Medicine
DX: I10 Essential (primary) hypertension (principal); E03.9 Hypothyroidism, unspecified; E78.2 Mixed hyperlipidemia

== ENCOUNTER → 2024-10-05 | Outpatient (REF) | payer MEDICARE, BC ==
[~2024-10-05] MED LIST changes: -ADV250INH INH; +ADVA1AER9 INH
[2024-10-05 12:39] LABS: ALBUMIN 3.6 G/DL (3.2-5.2); ALKALINE PHOSPHATASE 65 U/L (35-104); ALT/SGPT 24 U/L (7.0-40); AST/SGOT 21 U/L (<34); BILIRUBIN,TOTAL 0.7 MG/DL (0.3-1.2); BLOOD UREA NITROGEN 18 MG/DL (9-23); CALCIUM LEVEL 8.5 MG/DL (8.3-10.6); CARBON DIOXIDE LEVEL 28 MMOL/L (20-31); CHLORIDE LEVEL 105 MMOL/L (98-107); CHOLESTEROL LEVEL 250 MG/DL (<200); CHOLESTEROL RISK RATIO 3.39 (<5); CREATININE FOR GFR 0.74 MG/DL (0.55-1.30); GLOMERULAR FILTRATION RATE > 60.0 (>39); GLUCOSE, FASTING 84 MG/DL (74-106); HDL CHOLESTEROL 73.7 MG/DL (>40); LDL CHOLESTEROL 156.7 MG/DL (<100); NON-HDL-C 176.3 MG/DL; POTASSIUM SERUM 4.4 MMOL/L (3.5-5.1); SODIUM LEVEL 142 MMOL/L (136-145); THYROID STIMULATING HORMONE 2.422 uIU/ML (0.55-4.78); TOTAL PROTEIN 7.7 G/DL (5.7-8.2); TRIGLYCERIDES LEVEL 98 MG/DL (<150)
== END ==
LOC: M SFHCCLAY 08:33
PROVIDERS: ATTEND Family Medicine
DX: E03.9 Hypothyroidism, unspecified (principal); E78.2 Mixed hyperlipidemia

== ENCOUNTER → 2025-04-04 | Outpatient (REF) | payer MEDICARE, BC ==
[~2025-04-04] MED LIST changes: +DENO60SY2 SC; -PROL60SO SC; -RA T500C2 PO; +TURM500C10 PO
[2025-04-04 12:47] LABS: PLATELET COUNT, AUTOMATED 215 10^3/uL (150-450)
[2025-04-04 12:50] LABS: ALT/SGPT 21.0 U/L (7.0-40); AST/SGOT 24.0 U/L (<34); CALCIUM LEVEL 8.6 MG/DL (8.3-10.6); CARBON DIOXIDE LEVEL 28.0 MMOL/L (20-31); CHLORIDE LEVEL 106.0 MMOL/L (98-107); CHOLESTEROL LEVEL 218.0 MG/DL (<200); CHOLESTEROL RISK RATIO 3.87 (<5); CREATININE FOR GFR 0.72 MG/DL (0.55-1.30); GLOMERULAR FILTRATION RATE 89.3 (>39); LDL CHOLESTEROL 145.4 MG/DL (<100); NON-HDL-C 161.8 MG/DL; POTASSIUM SERUM 4.2 MMOL/L (3.5-5.1); SODIUM LEVEL 144.0 MMOL/L (136-145); TRIGLYCERIDES LEVEL 82.0 MG/DL (<150)
== END ==
LOC: M SFHCCLAY 08:12
PROVIDERS: ATTEND Family Medicine
DX: D61.9 Aplastic anemia, unspecified (principal); I10 Essential (primary) hypertension; E78.2 Mixed hyperlipidemia; E03.9 Hypothyroidism, unspecified

== ENCOUNTER → 2025-04-18 | Outpatient (CLI) | payer MEDICARE, BC | LOC: M WHC 14:41 | PROVIDERS: ATTEND Nurse Practitioner Family | DX: Z12.31 Encounter for screening mammogram for malignant neoplasm of breast (principal); R92.323 Mammographic fibroglandular density, bilateral breasts ==